=== PATIENT | male | born 1940 | race Caucasian/White ===

== ENCOUNTER 2018-08-16 13:21 | Emergency (ER) | payer OTHER, MEDICAID ==
[~2018-08-16] VITALS: Ht 167.6 cm; Wt 79.4 kg
[2018-08-16 13:21] VITALS: BP_SYST 148
--- NOTE | 2018-08-16 13:21 | NUR ---
BROUGHT IN BY [facility] AND [facility]ACED IN BED #4, AT BEDSIDE, TRIAGED AND REPORT GIVEN TO GELY. DR LOCO AT BEDSIDE FOR EVALUATION
--- NOTE | 2018-08-16 13:30 | NUR ---
Patient arrived via EMS, AAOx[facility], and ambulatory with weak gait. Patient states PMH of diabetes, HTN, and CVA. He has had generalized weakness over the past year, worsening over the past week. He also states he feels as if something is stuck in his throat, not tolerating solid foods, but intake of fluids and soups is good. Right sided deficits are from prior CVA. No complaints of fever, chills, CP, changes in status or recent travel. Will continue to follow up and monitor.
--- NOTE | 2018-08-16 13:35 | NUR ---
ER at bedside examining patient.
[2018-08-16] MEDS ORDERED: D5/0.45 NS 1,000 ML IV ONE (13:45)
--- NOTE | 2018-08-16 13:55 | NUR ---
Lab at bedside for completion of testing.
[2018-08-16 14:09] LABS: BASOPHILS # (AUTO) 0.1 K/uL (0.0-0.2); BASOPHILS % (AUTO) 0.9 % (0.0-2.0); EOSINOPHILS # (AUTO) 0.3 K/uL (0.0-0.4); EOSINOPHILS % (AUTO) 4.5 % (0.0-4.0); HEMATOCRIT 45.5 % (36-54); HEMOGLOBIN 14.9 g/dL (14.0-18.0); LYMPHOCYTES # (AUTO) 1.9 K/uL (1.0-5.5); LYMPHOCYTES % (AUTO) 29.6 % (20.5-51.5); MEAN CORPUSCULAR HEMOGLOBIN 31 pg (27-31); MEAN CORPUSCULAR HGB CONC 33 % (32-36); MEAN CORPUSCULAR VOLUME 93 fL (79.0-98.0); MONOCYTES # (AUTO) 0.5 K/uL (0.0-1.0); MONOCYTES % (AUTO) 7.7 % (1.7-9.3); NEUTROPHILS # (AUTO) 3.7 K/uL (1.8-7.7); NEUTROPHILS % (AUTO) 57.3 % (40.0-70.0); PLATELET COUNT (AUTO) 219 K/uL (130-430); RED BLOOD CELL COUNT(AUTO) 4.88 MIL/uL (4.2-6.2); RED CELL DISTRIBUTION WIDTH 13.3 % (9.0-15.0); WHITE BLOOD COUNT (AUTO) 6.5 K/uL (4.8-10.8)
[2018-08-16 14:19] LABS: ANION GAP 5 (5-15); CALCIUM 9.8 mg/dL (8.4-11.0); CHLORIDE 104 mmol/L (98-107); CREATININE 0.76 mg/dL (0.55-1.30); GLUCOSE 88 mg/dL (70-99); POTASSIUM 5.1 mmol/L (3.5-5.1); SODIUM SERUM 142 mmol/L (136-145); UREA NITROGEN, BLOOD 25 mg/dL (8-21)
[2018-08-16 14:25] LABS: PROTHROMBIN TIME 10.4 SECS (9.5-12.5)
[2018-08-16 14:30] LABS: ALANINE AMINOTRANSFERASE 23 U/L (12-78); ALBUMIN 3.1 g/dL (3.4-4.8); ASPARTATE AMINOTRANSFERASE 25 U/L (10-37); TOTAL BILIRUBIN 0.4 mg/dL (0.0-1.0)
--- NOTE | 2018-08-16 14:40 | NUR ---
Patient resting comfortably, needs are met at this time. Awaiting urine for testing. Patient aware. Will continue to follow up and monitor.
--- NOTE | 2018-08-16 15:58 | NUR ---
MD Peña at bedside reviewing results with patient and . Patient resting comfortably. Wanting to go home.
--- NOTE | 2018-08-16 16:15 | NUR ---
Patients states patient was to go to [facility], transport should have taken him to [facility]. We called [facility] and they were not aware of patients arrival. Upon speaking with patient he states he needs rehab, and has followed up with his PMD. Patient gave a card for transportation company. We called for transportation to patient to home address. Instructed to follow up with PCP regarding possible transfer for rehab. Patients states she can take care of him with no problem. Patient agreeable to go home, transport company to arrange transport.
--- NOTE | 2018-08-16 17:20 | NUR ---
Received phone call from transport company, they have set up a [employer] for transportation home. Awaiting arrival.
[2018-08-16 17:32] VITALS: BP_SYST 130
--- NOTE | 2018-08-16 17:34 | NUR ---
Patient given written and verbal discharge instructions and verbalizes understanding. ER MD discussed with patient the results and treatment provided. Patient in stable condition. ID arm band removed. Rx of Tylenol, Flexeril, and Augmentin given. Patient educated on pain management and to follow up with PMD. Pain Scale 0/10. Opportunity for questions provided and answered. Medication side effect fact sheet provided.
== END 2018-08-16 17:34 | disposition home or self-care (01) ==
LOC: SED 13:21
DX: J02.9 Acute pharyngitis, unspecified (principal); I10 Essential (primary) hypertension; E11.9 Type 2 diabetes mellitus without complications; Z86.73 Personal history of transient ischemic attack (TIA), and cerebral infarction without residual deficits
CPT/HCPCS: 36415; 70360-TC; 71045; 80053; 84484; 85025; 85610-TC; 85730-TC; 93005; 99284